=== PATIENT | female | born 2000 | race Caucasian/White ===

== ENCOUNTER 2019-07-24 01:41 | Emergency (ER) | payer OTHER ==
[~2019-07-24] VITALS: Ht 162.6 cm; Wt 69.0 kg
--- NOTE | 2019-07-24 01:45 | NUR ---
THIS IS A 18Y F BIB EMS FROM [facility] [facility]. PT WAS OUT DRINKING TONIGHT WITH [employer]RIENDS. ONCE BACK TO APT PT BEGAN VOMITING PROFUSELY AND BECAME UNABLE TO WALK. PT FRIENDS ATTEMPTED TO DRAG HER THE REST OF THE WAY INTO THE APT BUT WERE UNSUCCESSFUL. PT CONNECTED TO MONITORING. VSS, PT SLEEPING ON GURNEY OCCASIONAL DRY HEAVING HEARDHUSAM.
[2019-07-24 03:05] VITALS: BP 125/83
--- NOTE | 2019-07-24 03:05 | NUR ---
PT GROANING AND REPOSITIONING SELF ON GURNEY, NOW AROUSABLE TO VERBAL STIMULI
--- NOTE | 2019-07-24 04:14 | NUR ---
PT CONTINUES TO SLEEP ON GURNEY AT THIS TIME WITH OCCASIONAL GROANS NOTED
--- NOTE | 2019-07-24 04:52 | NUR ---
PT ALERT, REPOSITIONED SELF IN [facility], REQUESTING WATER.
--- NOTE | 2019-07-24 05:18 | NUR ---
PT SITTING UP IN BED DRINKING WATER, ASKING HOW SHE GOT HERE PT INFORMED ABOUT WHY/ HOW SHE ENDED UP IN THE HOSPITAL.
--- NOTE | 2019-07-24 06:50 | NUR ---
REPORT RECEIVED, CARE ASSUMED. PER REPORT PT ATTEMPTING TO ARRANGE TRANSPORTATION HOME.
--- NOTE | 2019-07-24 07:31 | NUR ---
NO IV TO DC. REVIEWED DC INSTRUCTIONS WITH PT. UNDERSTANDING VERBALZED. PT LEFT AMB, GAIT STEADY. WAITING FOR FRIEND.
== END 2019-07-24 07:33 | disposition home or self-care (01) ==
LOC: ED 05:11
DX: F10.120 Alcohol abuse with intoxication, uncomplicated (principal); Y90.0 Blood alcohol level of less than 20 mg/100 ml
CPT/HCPCS: 99283